=== PATIENT | female | born 1955 | race Caucasian/White ===

== ENCOUNTER → 2020-01-21 | Outpatient (CLI) | payer OTHER ==
[~2020-01-21] MED LIST: ALPR1TAB2 PO; PANT20TA4 PO; ROSU10TA2 PO; SERT100T PO; ZOLP10TA PO; [UNRECOGNIZED DRUG - REMARK]
[2020-01-21 16:48] LABS: BASOPHILS % (AUTO) 1 % (0-1); EOSINOPHILS % (AUTO) 3 % (1-7); LYMPHOCYTES % (AUTO) 34 % (22-44); MEAN CORPUSCULAR HEMOGLOBIN 27.8 pg (27.0-34.8); MEAN CORPUSCULAR HGB CONC 33.1 g/dL (32.4-35.8); MEAN PLATELET VOLUME 7.5 fL (7.4-10.4); MONOCYTES % (AUTO) 7 % (2-9); NEUTROPHILS % (AUTO) 56 % (42-75); PLATELET COUNT 206 x10^3/uL (130-400); RED BLOOD COUNT 4.45 x10^6/uL (3.82-5.3); RED CELL DISTRIBUTION WIDTH 15.7 % (9.6-15.2)
[2020-01-21 16:51] LABS: MD NO
[2020-01-21 16:52] LABS: INTERNATIONAL NORMALIZED RATIO 0.94 (0.93-1.1)
[2020-01-21 16:54] LABS: ANION GAP 4 mmol/L (5-15); CALCIUM 9.1 mg/dL (8.5-10.1); CHLORIDE 105 mmol/L (98-107); CREATININE 0.72 mg/dL (0.55-1.02)
== END | disposition home or self-care (01) ==
LOC: STAR 15:50
PROVIDERS: ATTEND Orthopaedic Surgery
DX: Z01.818 Encounter for other preprocedural examination (principal); M17.11 Unilateral primary osteoarthritis, right knee
CPT/HCPCS: 36415; 80048; 83036; 85025; 85610; 85730; 87081; 87806; 93005; G0475

== ENCOUNTER 2020-01-26 07:10 | Observation (INO) | payer OTHER ==
[~2020-01-26] VITALS: Ht 162.6 cm; Wt 103.0 kg
[2020-01-26] MEDS ORDERED: CHLORHEXIDINE 15 ML UDC MM STA (07:33)
[2020-01-26] MEDS ORDERED: LACTATED RINGERS 1,000 ML IV SCH (08:00)
[2020-01-26] MEDS ORDERED: SCOPOLAMINE 1MG PATCH TD ONE (08:47)
[2020-01-26] MEDS ORDERED: GABAPENTIN 300 MG CAPSULE ONE (08:47)
[2020-01-26] MEDS ORDERED: ACETAMINOPHEN 500 MG TABLET ONE (08:47)
[2020-01-26] MEDS ORDERED: KETOROLAC 60 MG/2 ML ONE (08:58)
[2020-01-26] MEDS ORDERED: EPINEPHRINE 1 MG/ML, 1ML ONE (08:59)
[2020-01-26] MEDS ORDERED: ROPIvacaine/PF 0.2%, 20 ML ONE (08:59)
[2020-01-26] MEDS ORDERED: TRANEXAMIC ACID 100 MG/ML, 10ML ONE (08:59)
[2020-01-26] MEDS ORDERED: SODIUM CHLORIDE 0.9% 50 ML ONE (08:59)
[2020-01-26] MEDS ORDERED: ACETAMINOPHEN 500 MG TABLET PO ONE (09:00)
[2020-01-26] MEDS ORDERED: GABAPENTIN 300 MG CAPSULE PO ONE (09:00)
[2020-01-26] MEDS ORDERED: SCOPOLAMINE 1MG PATCH TD SCH (09:00)
[2020-01-26] MEDS ORDERED: FENTANYL PF 250 MCG/5ML ONE ×2 (09:12→09:47)
[2020-01-26] MEDS ORDERED: MIDAZOLAM 1 MG/ML, 2ML ONE (09:13)
[2020-01-26] MEDS ORDERED: PROPOFOL 50 ML ONE ×2 (09:25→10:25)
[2020-01-26] MEDS ORDERED: NEOSTIGMINE 1 MG/ML, 10ML ONE (09:40)
[2020-01-26] MEDS ORDERED: DEXAMETHASONE 4 MG/ML, 1ML ONE (09:40)
[2020-01-26] MEDS ORDERED: ROCURONIUM 10MG/ML,5ML ONE (09:40)
[2020-01-26] MEDS ORDERED: METOCLOPRAMIDE 5 MG/ML, 2ML ONE (09:40)
[2020-01-26] MEDS ORDERED: CEFAZOLIN 1,000 MG ONE (09:40)
[2020-01-26] MEDS ORDERED: PROPOFOL 10 MG/ML, 20ML ONE (09:40)
[2020-01-26] MEDS ORDERED: GLYCOPYRROLATE 0.2MG/1ML, 5ML ONE (09:40)
[2020-01-26] MEDS ORDERED: SUCCINYLCHOLINE 20 MG/ML, 10ML ONE (09:40)
[2020-01-26] MEDS ORDERED: ONDANSETRON 2MG/ML, 2ML ONE (09:40)
[2020-01-26] MEDS ORDERED: PROMETHAZINE 25 MG/ML, 1ML IVPush PRN (10:30)
[2020-01-26] MEDS ORDERED: HYDROmorphone 1 MG/ML, 1ML INJ IVPush PRN (10:30)
[2020-01-26] MEDS ORDERED: hydrALAzine 20 MG/ML, 1ML IV PRN (10:30)
[2020-01-26] MEDS ORDERED: LABETALOL 5MG/ML, 20ML IV PRN (10:30)
[2020-01-26] MEDS ORDERED: EPHEDRINE 50 MG/ML, 1ML IVPush PRN (10:30)
[2020-01-26] MEDS ORDERED: FENTANYL PF 100 MCG/2ML IV PRN (10:30)
[2020-01-26] MEDS ORDERED: EPHEDRINE 50 MG/ML, 1ML IM PRN (10:30)
[2020-01-26] MEDS ORDERED: HALOPERIDOL 5 MG/ML IV PRN (10:30)
[2020-01-26] MEDS ORDERED: ACETAMINOPHEN 325 MG TABLET PO PRN (10:30)
[2020-01-26] MEDS ORDERED: OXYcodone 5 MG/5 ML ORAL.SOL UDC PO PRN (10:30)
[2020-01-26] MEDS ORDERED: MEPERIDINE/PF 25MG/0.5ML IVPush PRN (10:30)
[2020-01-26] MEDS ORDERED: PROMETHAZINE 12.5 MG SUPP PR PRN (11:00)
[2020-01-26] MEDS ORDERED: ONDANSETRON 4 MG TABLET PO PRN (11:00)
[2020-01-26] MEDS ORDERED: TRANEXAMIC ACID 1,000 MG in SODIUM CHLORIDE 0.9% 100 ML IVPB ONE (11:00)
[2020-01-26] MEDS ORDERED: MORPHINE SULFATE 4 MG/ML, 1ML IVPush PRN (11:00)
[2020-01-26] MEDS ORDERED: ALPRazolam 1MG TAB PO PRN (11:00)
[2020-01-26] MEDS ORDERED: MAGNESIUM HYDROXIDE 8%, 30ML UDC PO PRN (11:00)
[2020-01-26] MEDS ORDERED: OXYcodone/APAP 5/325MG TABLET PO PRN (11:00)
[2020-01-26] MEDS ORDERED: OXYcodone/APAP 10/325MG TABLET PO PRN (11:00)
[2020-01-26] MEDS ORDERED: ONDANSETRON 2MG/ML, 2ML IV PRN (11:00)
[2020-01-26] MEDS ORDERED: DIPHENHYDRAMINE 25 MG CAPSULE PO PRN (11:00)
[2020-01-26] MEDS ORDERED: KETOROLAC 30 MG/1 ML IV SCH (11:00)
[2020-01-26] MEDS ORDERED: FENTANYL PF 100 MCG/2ML ONE (11:08)
[2020-01-26] MEDS ORDERED: HYDROmorphone 1 MG/ML, 1ML INJ ONE (11:08)
[2020-01-26] MEDS ORDERED: OXYcodone 5 MG/5 ML ORAL.SOL UDC ONE (11:09)
[2020-01-26] MEDS ORDERED: DIPHENHYDRAMINE 50 MG/ML, 1ML ONE (11:12)
[2020-01-26] MEDS ORDERED: DIPHENHYDRAMINE 50 MG/ML, 1ML IVPush ONE (11:30)
[2020-01-26 12:05] VITALS: BP 123/81
[2020-01-26] MEDS ORDERED: OXYcodone/APAP 5/325MG PO (12:39)
[2020-01-26] MEDS ORDERED: ASPI81TA45 PO (12:39)
[2020-01-26] MEDS ORDERED: DOCU100C33 PO (12:39)
[2020-01-26] MEDS ORDERED: CEFAZOLIN PMX 1GM/50ML 50 ML IVPB SCH (13:00)
[2020-01-26] MEDS ORDERED: SERTRALINE 100MG TABLET PO SCH (21:00)
[2020-01-26] MEDS ORDERED: ZOLPIDEM 10MG TABLET PO SCH (21:00)
[2020-01-26] MEDS ORDERED: DOCUSATE 100 MG CAPSULE PO SCH (21:00)
[2020-01-27] MEDS ORDERED: ASPIRIN 81 MG TABLET EC PO SCH ×2 (06:00→18:00)
== END 2020-01-26 16:00 | disposition home or self-care (01) ==
LOC: OUT 07:10 → ORIP 10:51 → 2NW 12:01 → DCLOUNGE 15:53
PROVIDERS: ADMIT Orthopaedic Surgery; ATTEND Orthopaedic Surgery
DX: M17.12 Unilateral primary osteoarthritis, left knee (principal); Z20.828 Contact with and (suspected) exposure to other viral communicable diseases; M71.21 Synovial cyst of popliteal space [Baker], right knee; K21.9 Gastro-esophageal reflux disease without esophagitis; E78.5 Hyperlipidemia, unspecified; E66.9 Obesity, unspecified; Z79.899 Other long term (current) drug therapy; Z90.710 Acquired absence of both cervix and uterus
CPT/HCPCS: 27447; 73560; 87635; 97161; C1713; C1776; G0378; J0171; J0330; J0690; J1100; J1170; J1200; J1885; J2250; J2405; J2704; J2710; J2765; J2795; J3010; J7120; Q0163

== ENCOUNTER → 2020-02-25 | Outpatient (CLI) | payer OTHER ==
[~2020-02-25] MED LIST changes: +ASPI81TA45 PO; +DOCU100C33 PO; +OXYcodone/APAP 5/325MG PO
[2020-02-25 10:50] LABS: BASOPHILS % (AUTO) 1 % (0-1); EOSINOPHILS % (AUTO) 4 % (1-7); LYMPHOCYTES % (AUTO) 30 % (22-44); MEAN PLATELET VOLUME 7.2 fL (7.4-10.4); MONOCYTES % (AUTO) 7 % (2-9); NEUTROPHILS % (AUTO) 59 % (42-75); PLATELET COUNT 311 x10^3/uL (130-400); RED BLOOD COUNT 4.19 x10^6/uL (3.82-5.3); RED CELL DISTRIBUTION WIDTH 14.9 % (9.6-15.2)
[2020-02-25 10:57] LABS: ANION GAP 3 mmol/L (5-15); CALCIUM 9.7 mg/dL (8.5-10.1); CHLORIDE 105 mmol/L (98-107); CREATININE 0.74 mg/dL (0.55-1.02)
[2020-02-25 10:58] LABS: PROTHROMBIN TIME 10.6 Seconds (9.6-11.5)
[2020-02-25 11:01] LABS: MD NO
== END | disposition home or self-care (01) ==
LOC: STAR 10:02
PROVIDERS: ATTEND Orthopaedic Surgery
DX: Z01.810 Encounter for preprocedural cardiovascular examination (principal); Z01.818 Encounter for other preprocedural examination; M17.11 Unilateral primary osteoarthritis, right knee; R94.31 Abnormal electrocardiogram [ECG] [EKG]; Z20.828 Contact with and (suspected) exposure to other viral communicable diseases; Z79.01 Long term (current) use of anticoagulants
CPT/HCPCS: 80048; 83036; 85025; 85610; 85730; 87081; 87635; 87806; 93005; G0475

== ENCOUNTER 2020-03-01 08:56 | Observation (INO) | payer OTHER ==
[~2020-03-01] VITALS: Ht 162.6 cm; Wt 102.3 kg
[2020-03-01] MEDS ORDERED: ACETAMINOPHEN 500 MG TABLET PO STA (09:16)
[2020-03-01] MEDS ORDERED: GABAPENTIN 300 MG CAPSULE PO STA (09:16)
[2020-03-01] MEDS ORDERED: TRANEXAMIC ACID 100 MG/ML, 10ML ONE (09:27)
[2020-03-01] MEDS ORDERED: KETOROLAC 60 MG/2 ML ONE (09:27)
[2020-03-01] MEDS ORDERED: ROPIvacaine/PF 0.2%, 20 ML ONE (09:28)
[2020-03-01] MEDS ORDERED: VANCOMYCIN 1,000 MG ONE (09:28)
[2020-03-01] MEDS ORDERED: CHLORHEXIDINE 15 ML UDC MM ONE (09:30)
[2020-03-01] MEDS ORDERED: LACTATED RINGERS 1,000 ML IV SCH (09:30)
[2020-03-01 09:32] VITALS: BP 115/88
[2020-03-01] MEDS ORDERED: EPINEPHRINE 1 MG/ML, 1ML ONE (09:37)
[2020-03-01] MEDS ORDERED: FENTANYL PF 250 MCG/5ML ONE (09:44)
[2020-03-01] MEDS ORDERED: MIDAZOLAM 1 MG/ML, 2ML ONE (09:44)
[2020-03-01] MEDS ORDERED: KETAMINE 10 MG/ML, 20ML ONE (10:43)
[2020-03-01] MEDS ORDERED: SCOPOLAMINE 1MG PATCH TD ONE (10:43)
[2020-03-01] MEDS ORDERED: METOCLOPRAMIDE 5 MG/ML, 2ML ONE (10:44)
[2020-03-01] MEDS ORDERED: PROPOFOL 50 ML ONE ×2 (10:48→11:18)
[2020-03-01] MEDS ORDERED: BUPIVACAINE/PF 0.25% ONE (11:26)
[2020-03-01] MEDS ORDERED: LIDOCAINE-MPF 2% ,5ML ONE (11:26)
[2020-03-01] MEDS ORDERED: CEFAZOLIN 1,000 MG ONE (11:29)
[2020-03-01] MEDS ORDERED: ONDANSETRON 2MG/ML, 2ML ONE (11:29)
[2020-03-01] MEDS ORDERED: PROPOFOL 10 MG/ML, 20ML ONE (11:29)
[2020-03-01] MEDS ORDERED: PROMETHAZINE 25 MG/ML, 1ML IVPush PRN (11:30)
[2020-03-01] MEDS ORDERED: ALBUTEROL SULFATE 2.5 MG/3 ML NPPB PRN (11:30)
[2020-03-01] MEDS ORDERED: MEPERIDINE/PF 25MG/0.5ML IVPush PRN (11:30)
[2020-03-01] MEDS ORDERED: LABETALOL 5MG/ML, 20ML IV PRN (11:30)
[2020-03-01] MEDS ORDERED: LORazepam 2 MG/ML, 1ML IVPush PRN (11:30)
[2020-03-01] MEDS ORDERED: FENTANYL PF 100 MCG/2ML IV PRN (11:30)
[2020-03-01] MEDS ORDERED: OXYcodone 5 MG/5 ML ORAL.SOL UDC ONE (12:07)
[2020-03-01] MEDS ORDERED: HYDROmorphone 1 MG/ML, 1ML INJ ONE (12:07)
[2020-03-01] MEDS: OXYcodone 5 MG/5 ML ORAL.SOL UDC PO PRN ×2 (12:10→16:12)
[2020-03-01] MEDS: HYDROmorphone 1 MG/ML, 1ML INJ IVPush PRN ×2 (12:14→12:30)
[2020-03-01] MEDS ORDERED: DIAZEPAM 5 MG/ML, 2ML ONE (12:26)
[2020-03-01] MEDS ORDERED: DIPHENHYDRAMINE 25 MG CAPSULE PO PRN (12:30)
[2020-03-01] MEDS ORDERED: SENNA/DOCUSATE TABLET PO PRN (12:30)
[2020-03-01] MEDS ORDERED: POTASSIUM CHLORIDE 20 MEQ in D5%-0.45% NACL 1,000 ML IV SCH (12:30)
[2020-03-01] MEDS ORDERED: HYDROmorphone 1 MG/ML, 1ML INJ IVPush PRN (12:30)
[2020-03-01] MEDS ORDERED: ALUMINUM/MAG/SIMETHICONE 30 ML UDC PO PRN (12:30)
[2020-03-01] MEDS ORDERED: DIPHENHYDRAMINE 50 MG/ML, 1ML IVPush PRN (12:30)
[2020-03-01] MEDS ORDERED: MAGNESIUM HYDROXIDE 8%, 30ML UDC PO PRN (12:30)
[2020-03-01] MEDS ORDERED: ONDANSETRON 2MG/ML, 2ML IVPush PRN (12:30)
[2020-03-01] MEDS ORDERED: KETOROLAC 30 MG/1 ML IV SCH (12:30)
[2020-03-01] MEDS ORDERED: ONDANSETRON 4 MG TABLET PO PRN (12:30)
[2020-03-01] MEDS ORDERED: DEXAMETHASONE 4 MG/ML, 1ML IVPush SCH (12:30)
[2020-03-01] MEDS ORDERED: OXYcodone IR 5MG TABLET PO PRN (12:30)
[2020-03-01] MEDS ORDERED: PSYLLIUM PACKET PO PRN (12:30)
[2020-03-01] MEDS ORDERED: POLYETHYLENE GLYCOL 17 GM PACKET PO PRN (12:30)
[2020-03-01] MEDS ORDERED: CEFAZOLIN PMX 1GM/50ML 50 ML IVPB SCH (12:30)
[2020-03-01] MEDS ORDERED: ACETAMINOPHEN 650 MG/20.3 ML UDC PO PRN (12:30)
[2020-03-01] MEDS: DIAZEPAM 5 MG/ML, 2ML IVPush PRN ×2 (12:40→13:00)
[2020-03-01] MEDS ORDERED: TRANEXAMIC ACID 1,000 MG in SODIUM CHLORIDE 0.9% 100 ML IVPB ONE (12:49)
[2020-03-01] MEDS ORDERED: METHOCARBAMOL 1,000 MG in DEXTROSE 5% 100 ML IV PRN (13:00)
[2020-03-01] MEDS ORDERED: DOCUSATE 100 MG CAPSULE PO SCH (21:00)
[2020-03-01] MEDS ORDERED: ASPIRIN 81 MG TABLET EC PO SCH (21:00)
[2020-03-02] MEDS ORDERED: TAMSULOSIN 0.4 MG CAP.ER.24H PO SCH (09:00)
== END 2020-03-01 17:30 | disposition home or self-care (01) ==
LOC: OUT 08:56 → ORIP 12:20
PROVIDERS: ADMIT Orthopaedic Surgery; ATTEND Orthopaedic Surgery
DX: M17.0 Bilateral primary osteoarthritis of knee (principal); M71.21 Synovial cyst of popliteal space [Baker], right knee; K21.9 Gastro-esophageal reflux disease without esophagitis; E66.9 Obesity, unspecified; I25.10 Atherosclerotic heart disease of native coronary artery without angina pectoris; I10 Essential (primary) hypertension; F32.9 Major depressive disorder, single episode, unspecified; Z79.899 Other long term (current) drug therapy; Z87.891 Personal history of nicotine dependence
CPT/HCPCS: 27447; 73560; 97162; C1713; C1776; G0378; J0171; J0690; J1170; J1885; J2250; J2405; J2704; J2765; J2795; J3010; J3360; J3370; J3490; J7120; J2175

== ENCOUNTER 2020-03-02 21:13 | Emergency (ER) | payer OTHER ==
[~2020-03-02] VITALS: Ht 165.1 cm; Wt 100.0 kg
[2020-03-02] MEDS ORDERED: ONDANSETRON 2MG/ML, 2ML ONE (23:12)
--- NOTE | 2020-03-02 23:19 | NUR ---
PT AMBULATED TO WHEEL CHAIR AND BATHROOM WITH ASSISTANCE, PT HAD NAUSEA AFTER
[2020-03-02] MEDS ORDERED: ONDANSETRON 2MG/ML, 2ML IVPush ONE (23:30)
[2020-03-02 23:58] VITALS: BP 121/69
== END 2020-03-03 | disposition home or self-care (01) ==
LOC: ED 21:54
DX: S82.092A Other fracture of left patella, initial encounter for closed fracture (principal); W01.0XXA Fall on same level from slipping, tripping and stumbling without subsequent striking against object, initial encounter; Y93.89 Activity, other specified; Y92.009 Unspecified place in unspecified non-institutional (private) residence as the place of occurrence of the external cause; Y99.8 Other external cause status
CPT/HCPCS: 29505; 73560; 96374; 99283; J2405

== ENCOUNTER 2020-11-18 09:19 | Outpatient (CLI) | payer OTHER | END 2020-11-18 23:59 | disposition home or self-care (01) | LOC: CFH 09:19 | PROVIDERS: ATTEND Physical Medicine & Rehabilitation | DX: M25.461 Effusion, right knee (principal); M17.0 Bilateral primary osteoarthritis of knee; M76.31 Iliotibial band syndrome, right leg; Z96.651 Presence of right artificial knee joint ==